=== PATIENT | male | born 1955 | race Caucasian/White ===

== ENCOUNTER 2020-05-08 14:33 | Emergency (ER) | payer MEDICAID ==
[~2020-05-08] VITALS: Ht 172.7 cm; Wt 113.4 kg
[2020-05-08 14:55] VITALS: BP 110/66
--- NOTE | 2020-05-08 16:22 | NUR ---
Patient discharged to home in stable condition. Written and verbal after care instructions given. Patient verbalizes understanding of instruction. x-ray cd provided to patient.
== END 2020-05-08 16:22 | disposition home or self-care (01) ==
LOC: ER 14:36
DX: U07.1 COVID-19 (principal); E78.5 Hyperlipidemia, unspecified; Z98.890 Other specified postprocedural states
CPT/HCPCS: 71045-TC